=== PATIENT | female | born 1975 | race Caucasian/White ===

== ENCOUNTER 2019-12-09 09:31 | Emergency (ER) | payer OTHER ==
[2019-12-09 09:41] VITALS: BP 125/67
--- NOTE | 2019-12-09 10:29 | ER Document Report ---
ED Medical Screen (RME) - General Chief Complaint: Abdominal Pain Stated Complaint: ABDOMINAL PAIN Time Seen by Provider: 12/09/19 10:16 Primary Care Provider: REINA HINES DO [Primary Care Provider] - Follow up as needed Notes: 44-year-old female with past medical history constipation, tubal ligation, D&C presenting today with intermittent sharp left lower quadrant pain x1 week. States that the pain was sharp and severe this morning. States she has not been constipated. Last bowel movement was this morning. When she arrived at the emergency department this am she had a large amount of vaginal bleeding. Noticed that after she had the vaginal bleeding her pain started to subside. She does report she continues to be in a mild amount of pain in the left lower quadrant. Denies any nausea, vomiting. TRAVEL OUTSIDE OF THE [place] IN LAST 30 DAYS: No - Related Data Allergies/Adverse Reactions: No Known Allergies Allergy (Verified 12/09/19 10:11) Past Medical History - Social History Chew tobacco use (# tins/day): No Frequency of alcohol use: Occasional Drug Abuse: None - Immunizations Hx Diphtheria, Pertussis, Tetanus Vaccination: Yes - 2011 Physical Exam - Vital signs Vitals: Temp Pulse Resp BP Pulse Ox 98.7 F 73 14 125/67 97 12/09/19 09:39 12/09/19 09:39 12/09/19 09:39 12/09/19 09:39 12/09/19 09:39 - Notes Notes: Patient is a well-appearing female. Abdomen is soft with mild tenderness to the left lower quadrant. No rebound or guarding. Course - Re-evaluation Re-evalutation: 12/09/19 10:36 I have greeted and performed a rapid initial assessment of this patient. A comprehesive ED assessment and evaluation of this patient, analysis of test results and completion of the medical decision-making process will be conducted by additional ED providers. - Vital Signs Vital signs: Temp Pulse Resp BP Pulse Ox 98.7 F 73 14 125/67 97 12/09/19 09:39 12/09/19 09:39 12/09/19 09:39 12/09/19 09:39 12/09/19 09:39 Doctor's Discharge - Discharge Referrals: REINA HINES DO [Primary Care Provider] - Follow up as needed
[2019-12-09 10:44] LABS: ABSOLUTE EOSINOPHILS # (AUTO) 0.1 10^3/uL (0.0-0.6); ABSOLUTE LYMPHOCYTES (AUTO) 1.2 10^3/uL (0.5-4.7); ABSOLUTE MONOCYTES (AUTO) 0.6 10^3/uL (0.1-1.4); ABSOLUTE NEUT (AUTO) 6.5 10^3/uL (1.7-8.2); BASOPHILS % (AUTO) 0.5 % (0-2); EOSINOPHILS % (AUTO) 1.2 % (0-6); HEMATOCRIT 39.1 % (36.0-47.0); HEMOGLOBIN 13.6 g/dL (12.0-15.5); LYMPHOCYTES % (AUTO) 14.4 % (13-45); MEAN CORPUSCULAR HEMOGLOBIN 31.9 pg (27.0-33.4); MEAN CORPUSCULAR HGB CONC 34.8 g/dL (32.0-36.0); MEAN CORPUSCULAR VOLUME 92 fl (80-97); MONOCYTES % (AUTO) 6.8 % (3-13); PLATELET COUNT 323 10^3/uL (150-450); RED BLOOD COUNT 4.26 10^6/uL (3.72-5.28); SEGMENTED NEUTROPHILS % (AUTO) 77.1 % (42-78); TOTAL CELLS COUNTED % (AUTO) 100 %; WHITE BLOOD COUNT 8.4 10^3/uL (4.0-10.5)
[2019-12-09 10:56] LABS: APPEARANCE,URINE CLOUDY; BILIRUBIN,URINE NEGATIVE (NEGATIVE); COLOR,URINE DARK YELLOW; GLUCOSE, URINE NEGATIVE (NEGATIVE); KETONES,URINE NEGATIVE (NEGATIVE); LEUKOCYTE ESTERASE,URINE MODERATE (NEGATIVE); NITRITE,URINE NEGATIVE (NEGATIVE); PROTEIN,URINE 100 mg/dL (NEGATIVE); URINE SPECIFIC GRAVITY 1.023; UROBILINOGEN,URINE NEGATIVE mg/dL (<2.0)
[2019-12-09 11:02] LABS: ALBUMIN 4.2 g/dL (3.5-5.0); ALKALINE PHOSPHATASE 174 U/L (38-126); ANION GAP 5 (5-19); ASPARTATE AMINO TRANSFERASE 35 U/L (14-36); BILIRUBIN,TOTAL 0.4 mg/dL (0.2-1.3); BLOOD UREA NITROGEN 15 mg/dL (7-20); CALCIUM 9.4 mg/dL (8.4-10.2); CARBON DIOXIDE 28 mmol/L (22-30); CHLORIDE 104 mmol/L (98-107); GLUCOSE 95 mg/dL (75-110); POTASSIUM 4.3 mmol/L (3.6-5.0); TOTAL PROTEIN 7.2 g/dL (6.3-8.2)
--- NOTE | 2019-12-09 11:21 | ER Document Report ---
ED General - General Chief Complaint: Abdominal Pain Stated Complaint: ABDOMINAL PAIN Time Seen by Provider: 12/09/19 10:16 Primary Care Provider: REINA HINES DO [NO LOCAL MD] - Follow up as needed TRAVEL OUTSIDE OF THE [place] IN LAST 30 DAYS: No - HPI Notes: Chief complaint: Left lower quadrant abdominal pain and vaginal bleeding History of present illness: 44-year-old female followed by primary care provider at [facility] with a 2 to 3-month history of constipation and intermittent generalized abdominal pain which is more prominent in the left lower quadrant now presents with worsening discomfort today with associated nausea and one episode of vomiting. Also after arrival today she developed some vaginal bleeding. Patient is perimenopausal noting that she had an ablation procedure and tubal ligation performed by dairy hand about 18 months ago. She is not had any vaginal bleeding since then. She denies fever chills. She denies weight loss. Patient had previously talked with her primary care physician about her problems with abdominal pain and constipation unable to obtain plain films of the abdomen telling her they thought she had significant constipation and fecal impaction. They had given her oral magnesium citrate and subsequently have treated her with some MiraLAX. She says she has "good days and bad days" in terms of ability to have a normal bowel movement. She has a grandmother who of possible colorectal cancer although details are unclear. She had already talked with her primary care provider about getting referral to a logistics tech for consideration of a colonoscopy but has not yet finalized these arrangements. - Related Data Allergies/Adverse Reactions: No Known Allergies Allergy (Verified 12/09/19 10:11) Past Medical History - General Information source: Patient - Social History Smoking Status: Never Smoker Chew tobacco use (# tins/day): No Frequency of alcohol use: Occasional Drug Abuse: None Occupation: Schoolteacher Lives with: Family Family History: Other - Grandmother with possible colorectal cancer - Past Medical History Cardiac Medical History: Reports: None Pulmonary Medical History: Reports: None Neurological Medical History: Reports: None Endocrine Medical History: Reports: None Malignancy Medical History: Reports: None GI Medical History: Reports: None Psychiatric Medical History: Reports: Hx Depression Past Surgical History: Reports: Hx Tubal Ligation, Other - Uterine ablation - Immunizations Hx Diphtheria, Pertussis, Tetanus Vaccination: Yes - 2011 Review of Systems - Review of Systems Notes: Constitutional: Negative for fever. HENT: Negative for sore throat. Eyes: Negative for visual changes. Cardiovascular: Negative for chest pain. Respiratory: Negative for shortness of breath. Gastrointestinal: As per HPI. Genitourinary: As per HPI. Negative for dysuria. Musculoskeletal: Negative for back pain. Skin: Negative for rash. Neurological: Negative for headaches, weakness or numbness. 10 point ROS negative except as marked above and in HPI. Physical Exam - Vital signs Vitals: Temp Pulse Resp BP Pulse Ox 98.7 F 73 14 125/67 97 12/09/19 09:39 12/09/19 09:39 12/09/19 09:39 12/09/19 09:39 12/09/19 09:39 - Notes Notes: GENERAL: Well-developed well-nourished middle-aged female appearing in no acute distress. SKIN: Good turgor no rashes. HEAD: Normocephalic atraumatic. EYES: PERRLA. EOMI. Conjunctivae and sclerae clear. EARS: CANALS AND TMS CLEAR. NOSE: CLEAR. MOUTH: Moist mucosa. Good dentition. No stridor or edema. No drooling. NECK: Supple. No masses or thyromegaly. No adenopathy. Carotids 2+ without bruits. No JVD. BACK: Symmetrical without tenderness. CHEST: Respirations unlabored. Breath sounds clear and symmetrical. HEART: Regular rhythm. No murmur gallop or rub. ABDOMEN: Mild left lower quadrant tenderness with palpation. Soft without masses, organomegaly or rebound. Bowel sounds normally active. No bruits. GENITALIA: Deferred. EXTREMITIES: No edema. No calf tenderness. Cap refill less than 1.5 seconds. Dorsalis pedis and posterior tibial pulses 3+ and symmetrical. NEUROLOGICAL: GCS 15. Alert and oriented x3. Normal gait. Fluent speech. Cranial nerves II through XII intact. Sensorimotor and cerebellar normal. Normal tone. PSYCHIATRIC: Appropriate affect. Course - Re-evaluation Re-evalutation: 12/09/19 15:34 test negative. CBC normal. Mild elevation of alkaline phosphatase and transaminase values on comprehensive metabolic profile.. Normal CT abdomen pelvis. Normal gallbladder ultrasound. Normal pelvic ultrasound. Findings, clinical impression and plan of treatment have been discussed with patient/family. Understanding of current findings and recommendations has been acknowledged by them and there is agreement regarding disposition and follow-up. - Vital Signs Vital signs: Temp Pulse Resp BP Pulse Ox 98.7 F 73 14 125/67 97 12/09/19 09:39 12/09/19 09:39 12/09/19 09:39 12/09/19 09:39 12/09/19 09:39 - Laboratory Result Diagrams: 12/09/19 10:30 12/09/19 10:30 Laboratory results interpreted by me: 12/09/19 12/09/19 09:40 10:30 Sodium 136.5 L ALT 88 H Alkaline Phosphatase 174 H Urine Protein 100 H Urine Blood LARGE H Ur Leukocyte Esterase MODERATE H - Diagnostic Test Radiology reviewed: Reports reviewed - Per radiologist: Normal CT abdomen p chano. Normal gallbladder ultrasound. Normal pelvic ultrasound. Discharge - Discharge Clinical Impression: Chronic abdominal pain, Vaginal bleeding Condition: Stable Disposition: HOME, SELF-CARE Additional Instructions: Continue MiraLAX. Follow-up with your primary care physician tomorrow. Discuss referral to logistics tech for consideration of colonoscopy in view of your family history. Contact your dairy hand regarding recurrence of vaginal bleeding. Return here as needed for new or worsening symptoms: Pain that is worsening or unimproved Uncontrolled vomiting High fever or shaking chills Overall worsening Referrals: REINA HINES, [NO LOCAL MD] - Follow up as needed
--- NOTE | 2019-12-09 12:10 | RADIOLOGY REPORT (SQ) ---
EXAM DESCRIPTION: CT ABD/PELVIS WITH IV ONLY IMAGES COMPLETED DATE/TIME: 12/09/2019 11:44 am REASON FOR STUDY: Left lower quadrant abdominal pain COMPARISON: None. TECHNIQUE: CT scan of the abdomen and pelvis performed using helical scanning technique with dynamic intravenous contrast injection. No oral contrast. Images reviewed with lung, soft tissue, and bone windows. Reconstructed coronal and sagittal MPR images reviewed. Delayed images for evaluation of the urinary system also acquired. All images stored on PACS. All CT scanners at this facility use dose modulation, iterative reconstruction, and/or weight based d osing when appropriate to reduce radiation dose to as low as reasonably achievable (ALARA). [facility]: Dose Right [facility]: CareDose [facility]: Dose Right [facility]: Teradose 4D [facility]: [employer] Systems CONTRAST TYPE AND DOSE: contrast/concentration: Isovue 350.00 mmol/ml; Total Contrast Delivered: 96. 0 ml; Total Saline Delivered: 71.0 ml RENAL FUNCTION: Creatinine 0.69 RADIATION DOSE: CT Rad equipment meets quality standard of care and radiation dose reduction techniq ues were employed. CTDIvol: 11.0 - 14.5 mGy. DLP: 1371 mGy-cm.. LIMITATIONS: None. FINDINGS: LOWER CHEST: No consolidation or pleural effusion. LIVER: Normal size. No masses. No dilated ducts. SPLEEN: Normal size. PANCREAS: No significant calcifications. No adjacent inflammation or peripancreatic fluid collections . Pancreatic duct not dilated. GALLBLADDER: No identified stones by CT criteria. No inflammatory changes to suggest cholecystitis. ADRENAL GLANDS: No significant masses or asymmetry. RIGHT KIDNEY AND URETER: No solid masses. No significant calcifications. No hydronephrosis or hyd roureter. LEFT KIDNEY AND URETER: No solid masses. No significant calcifications. No hydronephrosis or hydr oureter. AORTA AND VESSELS: No abdominal aortic aneurysm or acute dissection. RETROPERITONEUM: No retroperitoneal adenopathy, hemorrhage or masses. BOWEL AND PERITONEAL CAVITY: No dilated bowel loops to suggest obstruct. No free fluid or free air. APPENDIX: Normal. PELVIS: The urinary bladder is partially distended. The uterus is present. No free fluid. ABDOMINAL WALL: There is a small fat containing umbilical hernia. BONES: Mild multilevel degenerative changes at the spine. IMPRESSION: No acute findings in the abdomen or pelvis. TECHNICAL DOCUMENTATION: JOB ID: [id number] [employer] Quality ID # [id number]: Final reports with documentation of one or more dose reduction techniques (e.g., Au tomated exposure control, adjustment of the mA and/or kV according to patient size, use of iterative reconstruction technique) 2010 [employer]- All Rights Reserved Reading location - IP/workstation name: [email or web address]
--- NOTE | 2019-12-09 12:36 | RADIOLOGY REPORT (SQ) ---
EXAM DESCRIPTION: U/S NON OB PEL TV W/DOPPLER IMAGES COMPLETED DATE/TIME: 12/09/2019 12:15 pm REASON FOR STUDY: left lower quadrant pain and vaginal bleeding COMPARISON: CT abdomen and pelvis 12/09/2019 TECHNIQUE: Static grayscale images acquired of the pelvis via transvaginal approach and recorded on PACS. Additional selected color Doppler and spectral images recorded. LIMITATIONS: None. FINDINGS: UTERUS: The uterus measures 9.6 x 4.3 x 5.1 cm. No focal myometrial mass was seen. ENDOMETRIAL STRIPE: The endometrium measures 4.5 mm in double wall thickness, within normal limits. CERVIX: The cervix measures 3.9 cm in length. RIGHT OVARY AND DOPPLER: The right ovary measures 2.0 x 2.8 x 2.2 cm. Flow by Doppler was shown to t he right ovary. LEFT OVARY AND DOPPLER: The left ovary measures 3.0 x 2.2 x 2.4 cm. Flow by Doppler was shown to the left ovary. Small follicles are noted. FREE FLUID: None noted. IMPRESSION: No acute findings on transvaginal pelvic ultrasound. TECHNICAL DOCUMENTATION: JOB ID: [id number] [id number] 2010 [employer]- All Rights Reserved Rev-10/28 Reading location - IP/workstation name: [email or web address]
[2019-12-09 13:01] LABS: CHLAM PCR NOT DETECTED (NOT DETECT)
--- NOTE | 2019-12-09 15:30 | RADIOLOGY REPORT (SQ) ---
EXAM DESCRIPTION: U/S ABDOMEN LIMITED W/O DOP IMAGES COMPLETED DATE/TIME: 12/09/2019 2:58 pm REASON FOR STUDY: Abdominal pain and vomiting with abnormal LFT COMPARISON: CT abdomen and pelvis 12/09/2019. TECHNIQUE: Static grayscale images acquired of the right upper quadrant and recorded on PACS. Additi onal selected color Doppler and spectral images recorded. LIMITATIONS: Overlying bowel gas. FINDINGS: PANCREAS: Partially obscured by overlying bowel gas. The visualized pancreas in the midli ne is unremarkable. LIVER: The liver measures 16.5 cm. Echotexture normal. LIVER VASCULATURE: Normal directional flow of the main portal vein. GALLBLADDER: No stones. Normal wall thickness. No pericholecystic fluid. ULTRASOUND-DETECTED PANTOJA'S SIGN: Negative. INTRAHEPATIC DUCTS AND COMMON DUCT: CBD and intrahepatic ducts normal caliber. INFERIOR VENA CAVA: Patent. AORTA: No aneurysm at the visualized segments. RIGHT KIDNEY: Measures 10.4 cm. Normal echogenicity. No hydronephrosis. No calcifications. PERITONEAL AND RIGHT PLEURAL SPACE: No ascites or effusions. IMPRESSION: No acute findings. No cholelithiasis or biliary ductal dilation. TECHNICAL DOCUMENTATION: JOB ID: [id number] [id number] 2010 [employer]- All Rights Reserved Reading location - IP/workstation name: [email or web address]
== END 2019-12-09 15:42 | disposition home or self-care (01) ==
LOC: ER 09:31
DX: R10.9 Unspecified abdominal pain (principal); G89.29 Other chronic pain; N93.9 Abnormal uterine and vaginal bleeding, unspecified; R10.32 Left lower quadrant pain; R11.2 Nausea with vomiting, unspecified; R74.0 Nonspecific elevation of levels of transaminase and lactic acid dehydrogenase [LDH]; R74.8 Abnormal levels of other serum enzymes
CPT/HCPCS: 36415; 74177; 76705; 76830; 80053; 81001; 81025; 83690; 85025; 87491; 87591; 93976; 99284